=== PATIENT | female | born 1980 | race Caucasian/White ===

== ENCOUNTER 2022-09-30 08:30 | Emergency (ER) | payer OTHER ==
[~2022-09-30] VITALS: Ht 162.6 cm; Wt 90.7 kg
[2022-09-30] MEDS ORDERED: CEPHALEXIN500 M1 PO ×2 (09:05→09:08)
== END 2022-09-30 09:15 | disposition home or self-care (01) ==
LOC: ED 08:30
DX: O91.22 Nonpurulent mastitis associated with the puerperium (principal)
CPT/HCPCS: 99283